=== PATIENT | female | born 1965 | race Caucasian/White ===

== ENCOUNTER 2018-02-09 10:51 | Outpatient (CLI) | payer BC | END 2018-02-09 10:52 | disposition home or self-care (01) | LOC: BICMAMMO 10:51 | PROVIDERS: ATTEND Obstetrics & Gynecology | DX: Z12.31 Encounter for screening mammogram for malignant neoplasm of breast (principal) | CPT/HCPCS: 77063; 77067 ==

== ENCOUNTER 2018-03-31 17:07 | Emergency (ER) | payer BC ==
[2018-03-31 18:13] LABS: Bilirubin Negative (Negative); Blood, Urine Negative (Negative); Clarity Clear (Clear); Glucose, Urine (Dipstick) Negative (Negative); Leukocyte Negative (Negative); Nitrite Negative (Negative); Protein, Urine (Dipstick) Negative (Neg-Trace); Urobilinogen 0.2 mg/dL (0.2-1.0); pH, Urine 6.5 (5.0-9.0)
[2018-03-31] MEDS ORDERED: Morphine 4 MG/ML Carpuject ONE (18:55)
[2018-03-31] MEDS ORDERED: Promethazine HCl 25 MG/ML VIAL ONE (18:55)
== END 2018-03-31 19:24 | disposition home or self-care (01) ==
LOC: SCSER 17:07
DX: M54.5 Low back pain (principal); I10 Essential (primary) hypertension; E78.5 Hyperlipidemia, unspecified; F32.9 Major depressive disorder, single episode, unspecified; F41.9 Anxiety disorder, unspecified; Z79.899 Other long term (current) drug therapy
CPT/HCPCS: 81003; 96372; J2270; J2550

== ENCOUNTER 2018-04-07 13:00 | Outpatient (CLI) | payer BC ==
[2018-04-07] MEDS ORDERED: Gadobenate Dimeglumine 529 MG/1 ML (20ML VIAL) ONE (14:00)
--- NOTE | 2018-04-07 15:40 | MRI ---
MRI OF THE LUMBAR SPINE WITH AND WITHOUT CONTRAST; 04/07/18 COMPARISON: None. HISTORY: Left sided hip pain, low back pain. TECHNIQUE: Multiplanar and multisequence MR imaging of the lumbar spine provided with and without contrast. FINDINGS: The sagittal STIR imaging demonstrates no focal areas of osseous marrow edema. There is fluid signal intensity within the facet joints on the right at L2-3, L3-4 and L4-5 and on the left at L4-5. On the basis of five lumbar type vertebral bodies, the conus medullaris terminates at T12-L1. T12-L1: There is disc desiccation central annular tear and mild disc bulge with no associated central canal or neural foraminal stenosis. L1-2: Mild bilateral facet hypertrophy. Intervertebral disc height and signal intensity grossly unre markable. Mild anterior osteophyte formation. No significant central canal or neural foraminal stenos is. L2-3: There is mild bilateral facet hypertrophy. There is a small annular tear with an associated sma ll left paracentral disc protrusion causing no significant central canal or neural foraminal stenosis . L3-4: Mild bilateral facet hypertrophy. Intervertebral disc height and signal intensity grossly unrem arkable with no significant central canal or neural foraminal stenosis. L4-5: There is disc desiccation. There is moderate bilateral facet hypertrophy. No significant centra l canal or neural foraminal stenosis. L5-S1: Mild bilateral facet hypertrophy with no significant central canal and neural foraminal stenos is. Imaged retroperitoneal structures appear grossly unremarkable. Postcontrast imaging demonstrates no abnormal enhancement involving the imaged osseous structures or the contents of the thecal sac. There are scattered lumbar spine hemangiomata noted, most prominent at the T12-L1 and L4 levels. IMPRESSION: Degenerative changes noted within the lumbar spine as described above, with no significant central ca nal or neural foraminal stenosis noted. Areas of fluid within facet joints can be seen on the basis o f instability and thus, flexion and extension radiographs of the lumbar spine suggested. POS: BHANU
== END 2018-04-07 13:01 | disposition home or self-care (01) ==
LOC: MRI 13:00
PROVIDERS: ATTEND Obstetrics & Gynecology
DX: M54.5 Low back pain (principal); M47.896 Other spondylosis, lumbar region
CPT/HCPCS: 72158; A9579

== ENCOUNTER 2018-04-08 17:27 | Outpatient (CLI) | payer BC ==
--- NOTE | 2018-04-08 19:09 | RAD ---
LUMBAR SPINE FIVE VIEWS: 04/08/18 HISTORY: Low back pain. FINDINGS/IMPRESSION: There is mild levoscoliosis of the lumbar spine. No compression fracture or bony destruction seen. Mi ld degenerative changes are present. There is 9 mm retrolisthesis of L1 over L2 on extension which re solves on flexion and neutral views. POS: BHANU
== END 2018-04-08 17:28 | disposition home or self-care (01) ==
LOC: RAD 17:27
PROVIDERS: ATTEND Obstetrics & Gynecology
DX: M51.35 Other intervertebral disc degeneration, thoracolumbar region (principal); M54.5 Low back pain; M47.896 Other spondylosis, lumbar region; M43.16 Spondylolisthesis, lumbar region; M41.9 Scoliosis, unspecified
CPT/HCPCS: 72120

== ENCOUNTER 2019-06-23 12:47 | Outpatient (CLI) | payer BC ==
--- NOTE | 2019-06-23 14:14 | MMO ---
Bilateral MAMMO Bilat Screen [facility]. CLINICAL HISTORY: Patient is 54 years old and is seen for screening. The patient has the following family history of breast cancer: maternal aunt. The patient has no personal history of cancer. The patient has a history of left Ultrasound Guided Core Biopsy in 2017 - benign. VIEWS: The views performed were: bilateral craniocaudal with tomosynthesis and bilateral mediolateral oblique with tomosynthesis. FILMS COMPARED: The present examination has been compared to prior imaging studies performed at [facility] on 11/22/2015, 01/29/2017, 02/05/2017 and 02/09/2018. This study has been interpreted with the assistance of computer-aided detection. MAMMOGRAM FINDINGS: There are scattered fibroglandular densities. Finding 1: There are multiple stable masses with associated biopsy clip seen in the upper-outer region of the left breast. Finding 2: There are stable benign appearing calcifications seen in both breasts. There are no suspicious masses, suspicious calcifications, or new areas of architectural distortion. IMPRESSION: THERE IS NO MAMMOGRAPHIC EVIDENCE OF MALIGNANCY. A ROUTINE FOLLOW-UP MAMMOGRAM IN 1 YEAR IS RECOMMENDED. THE RESULTS OF THIS EXAM WERE SENT TO THE PATIENT. ACR BI-RADS Category 2 - Benign finding MAMMOGRAPHY NOTE: 1. A negative mammogram report should not delay a biopsy if a dominant of clinically suspicious mass is present. 2. Approximately 10% to 15% of breast cancers are not detected by mammography. 3. Adenosis and dense breasts may obscure an underlying neoplasm. Reported by: VIGNESH PAGAN MD Electonically Signed: [id number]
== END 2019-06-23 12:48 | disposition home or self-care (01) ==
LOC: BICMAMMO 12:47
PROVIDERS: ATTEND Obstetrics & Gynecology
DX: Z12.31 Encounter for screening mammogram for malignant neoplasm of breast (principal)
CPT/HCPCS: 77063; 77067

== ENCOUNTER 2020-12-13 12:05 | Outpatient (CLI) | payer BC | END 2020-12-13 12:06 | disposition home or self-care (01) | LOC: BICMAMMO 12:05 | PROVIDERS: ATTEND Student in an Organized Health Care Education/Training Program | DX: Z12.31 Encounter for screening mammogram for malignant neoplasm of breast (principal); Z91.89 Other specified personal risk factors, not elsewhere classified; Z80.3 Family history of malignant neoplasm of breast | CPT/HCPCS: 77063; 77067 ==

== ENCOUNTER 2023-03-26 19:00 | Outpatient (CLI) | payer OTHER, SELFPAY | END 2023-03-26 19:01 | disposition home or self-care (01) | LOC: SLEEPLAB 19:00 | PROVIDERS: ATTEND Nurse Practitioner Family | DX: G47.33 Obstructive sleep apnea (adult) (pediatric) (principal); R06.83 Snoring; G47.00 Insomnia, unspecified; F32.A Depression, unspecified; I10 Essential (primary) hypertension; K21.9 Gastro-esophageal reflux disease without esophagitis | CPT/HCPCS: 95811 ==

== ENCOUNTER 2024-07-23 13:24 | Outpatient (CLI) | payer OTHER | END 2024-07-23 13:25 | disposition home or self-care (01) | LOC: SCSMRI 13:24 | PROVIDERS: ATTEND Family Medicine Sports Medicine | DX: M47.896 Other spondylosis, lumbar region (principal); M53.3 Sacrococcygeal disorders, not elsewhere classified; M51.369 Other intervertebral disc degeneration, lumbar region without mention of lumbar back pain or lower extremity pain | CPT/HCPCS: 72148; 72195 ==